=== PATIENT | female | born 2000 | race Caucasian/White ===

== ENCOUNTER 2022-06-16 23:57 | Emergency (ER) | payer OTHER ==
[2022-06-17] MEDS ORDERED: HEPATITIS B IMMUNE GLOBULIN 220 UNIT/ML IM ONE ×2 (03:21→04:45)
[2022-06-17] MEDS ORDERED: Hepatitis B Virus Vaccine PF (Ped/Adolescent) 5 MCG/0.5 ML Syringe IM ONE (03:22)
[2022-06-17] MEDS ORDERED: Hepatitis B Virus Vaccine PF (Pediatric) 10 MCG/0.5 ML Syringe IM ONE (04:45)
== END 2022-06-17 05:05 | disposition home or self-care (01) ==
LOC: JD.ED 23:57
DX: S61.235A Puncture wound without foreign body of left ring finger without damage to nail, initial encounter (principal); Z86.16 Personal history of COVID-19; Z23 Encounter for immunization; W27.3XXA Contact with needle (sewing), initial encounter
CPT/HCPCS: 36415; 86803; 90371; 90744; 96372; 99283-25; G0010; G0433

== ENCOUNTER 2024-08-20 16:27 | Emergency (ER) | payer OTHER ==
[2024-08-20 17:00] LABS: APPEARANCE,URINE CLEAR (Clear); BILIRUBIN,URINE NEGATIVE (Negative); COLOR,URINE YELLOW (Yellow); GLUCOSE,URINE NEGATIVE (Negative); KETONES,URINE TRACE (Negative); LEUKOCYTE ESTERASE,URINE NEGATIVE (Negative); NITRITE,URINE NEGATIVE (Negative); OCCULT BLOOD,URINE TRACE-INTACT (Negative); PROTEIN,URINE NEGATIVE (Negative); UROBILINOGEN,URINE 0.2 (0.2-1.0)
[2024-08-20 17:16] LABS: BACTERIA,URINE FEW /hpf (FEW); EPITHELIAL CELLS,URINE 0-5 /hpf (0-5); RBC,URINE 0-5 /hpf (0-5); WBC,URINE 0-5 /hpf (0-5)
[2024-08-20 17:17] LABS: MUCUS,URINE MANY /hpf (FEW)
[2024-08-20 17:33] LABS: BASOPHILS ABSOLUTE AUTO 0.1 K/mm3 (0.0-0.2); BASOPHILS PERCENT AUTO 0.7 % (0.0-1.0); EOSINOPHILS ABSOLUTE AUTO 0.1 K/mm3 (0.0-0.4); EOSINOPHILS PERCENT AUTO 1.2 % (0.0-6.0); HEMATOCRIT 43.6 % (37.0-47.0); HEMOGLOBIN 14.4 gm/dl (12.0-16.0); IMMATURE GRAN ABSOLUTE AUTO 0.01 K/mm3 (0.00-0.05); IMMATURE GRAN PERCENT AUTO 0.1 % (0.0-0.4); LYMPHOCYTES ABSOLUTE AUTO 1.4 K/mm3 (1.0-4.8); LYMPHOCYTES PERCENT AUTO 18.7 % (24.0-44.0); MEAN CORPUSCULAR HEMOGLOBIN 27.8 pg (28.0-32.0); MEAN CORPUSCULAR VOLUME 84.2 fl (83.0-99.0); MEAN PLATELET VOLUME 10.3 fl (9.4-12.3); MONOCYTES ABSOLUTE AUTO 0.5 K/mm3 (0.0-0.8); MONOCYTES PERCENT AUTO 6.2 % (0.0-8.0); NEUTROPHILS ABSOLUTE AUTO 5.6 K/mm3 (1.8-7.7); NEUTROPHILS PERCENT AUTO 73.1 % (41.0-71.0); PLATELET COUNT,PLT 307 K/mm3 (150-400); RED BLOOD CELL COUNT 5.18 M/mm3 (4.10-5.30); WHITE BLOOD CELL COUNT,WBC 7.63 K/mm3 (3.9-11.3)
[2024-08-20] MEDS: Simethicone 80 MG Tab.Chew PO ONE (17:37)
[2024-08-20] MEDS: Ondansetron 4 MG/2 ML SDV IVPUSH ONE (17:37)
[2024-08-20] MEDS: Sodium Chloride 0.9% 1,000 ML IV SCH (17:37)
[2024-08-20] MEDS: Sodium Chloride 0.9% 10 ML Syringe FLUSH PRN (17:38)
[2024-08-20 17:56] LABS: LACTIC ACID 1.1 mmol/L (0.4-2.0)
[2024-08-20 18:03] LABS: A/G RATIO 1.2 (1-2); ALBUMIN 3.9 g/dl (3.4-5.0); ANION GAP 10.8 (5-15); BILIRUBIN TOTAL 0.3 mg/dL (0.2-1.0); BUN/CREATININE RATIO 16.3 (14-18); C-REACTIVE PROTEIN 0.64 mg/dL (<0.30); CALCIUM 9.2 mg/dL (8.5-10.1); CREATININE 0.8 mg/dL (0.55-1.02); EST CRCL DRUG DOSING (CG) 112.34 mL/min; POTASSIUM,K 3.8 mEq/L (3.5-5.1); PROTEIN TOTAL,TP 7.3 g/dl (6.4-8.2)
== END 2024-08-20 18:43 | disposition home or self-care (01) ==
LOC: JD.ED 16:27
DX: R10.12 Left upper quadrant pain (principal); F17.210 Nicotine dependence, cigarettes, uncomplicated; Z79.899 Other long term (current) drug therapy; Z86.16 Personal history of COVID-19
CPT/HCPCS: 36415; 80053; 81001; 81025; 83605; 83690; 85025; 86140; 96361; 96374; 99284; A9270; J2405; J7030; 99283